=== PATIENT | male | born 2000 | race Caucasian/White ===

== ENCOUNTER 2023-01-07 19:16 | Emergency (ER) | payer OTHER ==
[~2023-01-07] VITALS: Ht 170.2 cm; Wt 103.0 kg
[2023-01-07 19:23] VITALS: BP 109/67; PULSE 111; RESP 16; TEMP 98.4; O2SAT 96
== END 2023-01-07 20:25 | disposition left against medical advice (07) ==
LOC: ER 19:16
DX: F12.929 Cannabis use, unspecified with intoxication, unspecified (principal); W18.39XA Other fall on same level, initial encounter; Y93.89 Activity, other specified; Y92.89 Other specified places as the place of occurrence of the external cause; Y99.8 Other external cause status
CPT/HCPCS: 99283